=== PATIENT | male | born 1965 | race Caucasian/White ===

== ENCOUNTER 2021-07-20 21:13 | Emergency (ER) | payer MEDICARE, MEDICAID ==
[~2021-07-20] VITALS: Ht 173 cm; Wt 79.8 kg
[2021-07-20 21:13] VITALS: BP 154/98
[~2021-07-20 21:13] MED LIST: ALPR1TAB2 PO; ALPR1TAB7 PO; ALPR2TAB2 PO; AZIT-21 PO; CEFU500T5 PO; FLUT16SP22 NSEACH; GEMF600T88 PO; HYDR1TAB66 PO; LISI1TAB48 PO; NF-ESOM40C PO; OLAN10TA71 PO; OLAN20TA3 PO; OLAN20TA34 PO; OMEP20CA18 PO; PRED10TA PO; PRED50TA PO; REMERON PO; ROPI2TAB3 PO; ROPI2TAB6 PO; RT-ALBUINH IH; TIOT18CA2 IH; TRAZ150T60 PO; TRAZ150T72 PO
--- NOTE | 2021-07-20 21:27 | ED General ---
General Stated Complaint: LETHARGIC Source of Information: Patient Exam Limitations: No Limitations History of Present Illness Date Seen by Provider: Jul 20, 2021 Time Seen by Provider: 21:24 Initial Comments To ER by EMS with reports that he is lethargic for 2 days. He has had poor appetite has not been eating or drinking well. His only medical history is of paranoid schizophrenia Timing/Duration: 1-2 Days Severity: Moderate Associated Systoms: Denies Symptoms, Loss of Appetite, Malaise, Weakness Allergies and Home Medications Allergies Coded Allergies: divalproex sodium (Unverified Allergy, Unknown, 04/18/14) morphine (Unverified Allergy, Unknown, 04/18/14) quetiapine fumarate (Unverified Allergy, Unknown, 04/18/14) Patient Home Medication List Home Medication List Reviewed: Yes Albuterol Sulfate (Ventolin Hfa) 18 Gm Hfa.aer.ad, 2 PUFF IH Q4H PRN for SHORTNESS OF BREATH, (Reported) Entered as Reported by: MALINDA LIVINGSTON on 06/24/15857 Alprazolam (Alprazolam) 1 Mg Tablet, 1 MG PO BID, (Reported) Entered as Reported by: MALINDA LIVINGSTON on 06/24/15857 Fluticasone Propionate (Fluticasone Propionate) 16 Gm [place].susp, 2 SPRAYS NSEACH DAILY, (Reported) Entered as Reported by: MALINDA LIVINGSTON on 06/24/15857 Gemfibrozil (Gemfibrozil) 600 Mg Tablet, 600 MG PO BID, (Reported) Entered as Reported by: MALINDA LIVINGSTON on 06/24/15857 Lisinopril/Hydrochlorothiazide (Lisinopril-Hctz 20-25 mg Tab) 1 Each Tablet, 1 TAB PO HS, (Reported) Entered as Reported by: MALINDA LIVINGSTON on 06/24/15857 Olanzapine (Olanzapine) 10 Mg Tablet, 10 MG PO HS, (Reported) Entered as Reported by: MALINDA LIVINGSTON on 06/24/15857 Olanzapine (Olanzapine) 20 Mg Tablet, 20 MG PO HS, (Reported) Entered as Reported by: MALINDA LIVINGSTON on 06/24/15857 Omeprazole (Omeprazole) 20 Mg Capsule.dr, 20 MG PO HS, (Reported) Entered as Reported by: MALINDA LIVINGSTON on 06/24/15857 Ropinirole HCl (Ropinirole HCl) 2 Mg Tablet, 2 MG PO HS, (Reported) Entered as Reported by: MALINDA LIVINGSTON on 06/24/15857 Tiotropium [place] (Spiriva) 1 Inh Aerp, 1 CAP IH HS, (Reported) Entered as Reported by: MALINDA LIVINGSTON on 06/24/15857 Trazodone HCl (Oleptro ER) 150 Mg Tab.er.24h, 150 MG PO HS, (Reported) Entered as Reported by: MALINDA LIVINGSTON on 06/24/15857 Review of Systems Review of Systems Constitutional: see HPI; No chills, No fever; malaise, weakness EENTM: see HPI Respiratory: no symptoms reported; No cough, No dyspnea on exertion, No short of breath Cardiovascular: no symptoms reported Genitourinary: no symptoms reported Musculoskeletal: no symptoms reported Skin: no symptoms reported Psychiatric/Neurological: No Symptoms Reported Hematologic/Lymphatic: No Symptoms Reported Immunological/Allergic: no symptoms reported Past Inbwhqd-Cvwmuj-Ertbek Hx Immunizations Up To Date Tetanus Booster (TDap): Unknown PED Vaccines UTD: No Seasonal Allergies Seasonal Allergies: Yes Past Medical History Abdominal, Appendectomy Asthma, COPD, Emphysema Hypertension Reproductive Disorders: No Sexually Transmitted Disease: No HIV/AIDS: No Kidney Stones Fractures PTSD, Bipolar, Schizophrenia Family Medical History Alcoholism 19 FATHER 19 MOTHER Arthritis 19 FATHER Cataracts 19 FATHER Neoplasm 19 FATHER No Family History of: AIDS Abdominal aortic aneurysm [place]'s disease Alzheimer's disease Aphasia Asthma Cancer of mouth Cardiovascular disease Colon cancer Completed stroke Congenital disease Congenital heart disease Coronary thrombosis Cystic fibrosis Deafness or hearing loss Dementia Diabetes mellitus Drug abuse Dysphasia Fibrocystic disease of breast Gastroenteritis Glaucoma Headache disorder Hypercholesterolemia Hypertension Infertility Kidney disease Myocardial infarction Not obtainable due to adoption Osteoporosis Parkinson's disease Prostate cancer Psychosocial problem Respiratory disorder Seizure disorder Severe allergy Thyroid disease Tuberculosis Visual disorder Physical Exam Vital Signs Vital Signs - First Documented 07/20/21 21:13 Temp 36.8 Pulse 70 Resp 20 B/P (MAP) 154/98 (116) Pulse Ox 98 O2 Delivery Room Air Capillary Refill : Height, Weight, BMI Height: 5'7.00" Weight: 207lbs. 0.0oz. 93.787744cu; 32.42 BMI Method:Stated General Appearance: No Apparent Distress, WD/WN Eyes: Bilateral Eye Normal Inspection, Bilateral Eye PERRL, Bilateral Eye EOMI HEENT: PERRL/EOMI, TMs Normal, Other (Dry mucous membranes) Neck: Full Range of Motion, Normal Inspection Respiratory: No Accessory Muscle Use, No Respiratory Distress Cardiovascular: Regular Rate, Rhythm, Normal Peripheral Pulses Gastrointestinal: Non Tender, Soft Extremity: Normal Capillary Refill, Normal Inspection Neurologic/Psychiatric: Alert, Oriented x3 Progress/Results/Core Measures Suspected Sepsis SIRS Temperature: Pulse: Respiratory Rate: Laboratory Tests 07/20/21 21:21: White Blood Count 7.8 Blood Pressure / Mean: Laboratory Tests 07/20/21 21:21: Creatinine 1.07, Platelet Count 175, Total Bilirubin 0.7 Results/Orders Lab Results Laboratory Tests Test 07/20/21 21:21 07/20/21 21:50 07/20/21 22:10 Range/Units White Blood Count 7.8 4.3-11.0 10^3/uL Red Blood Count 5.56 H 4.30-5.52 10^6/uL Hemoglobin 17.0 13.3-17.7 g/dL Hematocrit 49 40-54 % Mean Corpuscular Volume 89 80-99 fL Mean Corpuscular Hemoglobin 31 25-34 pg Mean Corpuscular Hemoglobin Concent 35 32-36 g/dL Red Cell Distribution Width 12.8 10.0-14.5 % Platelet Count 175 130-400 10^3/uL Mean Platelet Volume 9.5 9.0-12.2 fL Immature Granulocyte % (Auto) 0 % Neutrophils (%) (Auto) 63 42-75 % Lymphocytes (%) (Auto) 28 12-44 % Monocytes (%) (Auto) 5 0-12 % Eosinophils (%) (Auto) 3 0-10 % Basophils (%) (Auto) 1 0-10 % Neutrophils # (Auto) 5.0 1.8-7.8 10^3/uL Lymphocytes # (Auto) 2.2 1.0-4.0 10^3/uL Monocytes # (Auto) 0.4 0.0-1.0 10^3/uL Eosinophils # (Auto) 0.3 0.0-0.3 10^3/uL Basophils # (Auto) 0.0 0.0-0.1 10^3/uL Immature Granulocyte # (Auto) 0.0 0.0-0.1 10^3/uL Sodium Level 140 135-145 MMOL/L Potassium Level 3.9 3.6-5.0 MMOL/L Chloride Level 103 98-107 MMOL/L Carbon Dioxide Level 23 21-32 MMOL/L Anion Gap 14 5-14 MMOL/L Blood Urea Nitrogen 14 7-18 MG/DL Creatinine 1.07 0.60-1.30 MG/DL Estimat Glomerular Filtration Rate 83 BUN/Creatinine Ratio 13 Glucose Level 144 H 70-105 MG/DL Calcium Level 9.4 8.5-10.1 MG/DL Corrected Calcium 9.2 8.5-10.1 MG/DL Total Bilirubin 0.7 0.1-1.0 MG/DL Aspartate Amino Transf (AST/SGOT) 14 5-34 U/L Alanine Aminotransferase (ALT/SGPT) 15 0-55 U/L Alkaline Phosphatase 79 40-136 U/L Total Protein 6.6 6.4-8.2 GM/DL Albumin 4.3 3.2-4.5 GM/DL Urine Color YELLOW Urine Clarity CLEAR Urine pH 7.0 5-9 Urine Specific [place] 1.015 L 1.016-1.022 Urine Protein NEGATIVE NEGATIVE Urine Glucose (UA) NEGATIVE NEGATIVE Urine Ketones NEGATIVE NEGATIVE Urine Nitrite NEGATIVE NEGATIVE Urine Bilirubin NEGATIVE NEGATIVE Urine Urobilinogen 0.2 < = 1.0 MG/DL Urine Leukocyte Esterase NEGATIVE NEGATIVE Urine RBC (Auto) NEGATIVE NEGATIVE Urine RBC RARE /HPF Urine WBC RARE /HPF Urine Squamous Epithelial Cells NONE /HPF Urine Crystals NONE /LPF Urine Bacteria TRACE /HPF Urine Casts NONE /LPF Urine Mucus SMALL H /LPF Urine Culture Indicated NO My Orders Orders - RUPAL CRANE APRN Covid 19 Inhouse Test (07/20/21 21:20) Cbc With Automated Diff (07/20/21 21:20) Comprehensive Metabolic Panel (07/20/21 21:20) Ed Iv/Invasive Line Start (07/20/21 21:20) Lactated Ringers (Lr 1000 Ml Iv Solution (07/20/21 21:30) Ua Culture If Indicated (07/20/21 21:20) Influenza A And B By Pcr (07/20/21 21:20) Vital Signs/I&O 07/20/21 21:13 Temp 36.8 Pulse 70 Resp 20 B/P (MAP) 154/98 (116) Pulse Ox 98 O2 Delivery Room Air Capillary Refill : Departure Impression Primary Impression: Fatigue Disposition: 01 HOME, SELF-CARE Condition: Stable Departure-Patient Inst. Decision time for Depature: 22:17 Referrals: TATA CHRISTINE MD (PCP/Family) Primary Care Physician Patient Instructions: Fatigue ED Add. Discharge Instructions: Return to ER for any concerns 2. Follow up with your doctor next week RUPAL CRANE APRN Jul 20, 2021 21:27
[2021-07-20 21:29] LABS: BASOPHILS % (AUTO) 1 % (0-10); EOSINOPHILS # (AUTO) 0.3 10^3/uL (0.0-0.3); EOSINOPHILS % (AUTO) 3 % (0-10); HEMATOCRIT 49 % (40-54); LYMPHOCYTES # (AUTO) 2.2 10^3/uL (1.0-4.0); LYMPHOCYTES % (AUTO) 28 % (12-44); MEAN CORPUSCULAR HEMOGLOBIN 31 pg (25-34); MEAN CORPUSCULAR HGB CONC 35 g/dL (32-36); MEAN CORPUSCULAR VOLUME 89 fL (80-99); MEAN PLATELET VOLUME 9.5 fL (9.0-12.2); MONOCYTES # (AUTO) 0.4 10^3/uL (0.0-1.0); MONOCYTES % (AUTO) 5 % (0-12); NEUTROPHILS % (AUTO) 63 % (42-75); PLATELET COUNT 175 10^3/uL (130-400); WHITE BLOOD COUNT 7.8 10^3/uL (4.3-11.0)
[2021-07-20] MEDS ORDERED: LACTATED RINGERS 1,000 ML IV SCH (21:30)
[2021-07-20 21:39] LABS: ALBUMIN 4.3 GM/DL (3.2-4.5)
[2021-07-20 21:40] LABS: POTASSIUM 3.9 MMOL/L (3.6-5.0)
[2021-07-20 21:41] LABS: CALCIUM 9.4 MG/DL (8.5-10.1)
[2021-07-20 21:42] LABS: TOTAL PROTEIN 6.6 GM/DL (6.4-8.2)
[2021-07-20 21:44] LABS: BILIRUBIN,TOTAL 0.7 MG/DL (0.1-1.0)
[2021-07-20 21:46] LABS: CREATININE SERUM 1.07 MG/DL (0.60-1.30)
[2021-07-20 21:57] LABS: BILIRUBIN,URINE NEGATIVE (NEGATIVE); CLARITY,URINE CLEAR; COLOR,URINE YELLOW; GLUCOSE, URINE (UA) NEGATIVE (NEGATIVE); KETONES,URINE NEGATIVE (NEGATIVE); LEUKOCYTE ESTERASE ,URINE NEGATIVE (NEGATIVE); NITRITE,URINE NEGATIVE (NEGATIVE); PROTEIN,URINE NEGATIVE (NEGATIVE)
[2021-07-20 22:14] LABS: BACTERIA,URINE TRACE /HPF; RBC,URINE RARE /HPF; WBC,URINE RARE /HPF
== END 2021-07-20 22:43 | disposition home or self-care (01) ==
LOC: EDUNIT# 21:13 → ER 21:17
DX: R53.83 Other fatigue (principal); Z20.822 Contact with and (suspected) exposure to COVID-19
CPT/HCPCS: 36415; 80053; 81000; 85025; 87636

== ENCOUNTER 2021-11-16 16:30 | Emergency (ER) | payer MEDICARE, MEDICAID ==
[~2021-11-16] VITALS: Ht 172.8 cm; Wt 78.0 kg
--- NOTE | 2021-11-16 16:58 | ED Respiratory ---
General Chief Complaint: COVID19 Suspect/Confirmed Stated Complaint: CHEST PAIN, ARM PAIN Nursing Triage Note: Pt presents w/ anxiety, chest pressure, hyperventilation, and recent exposure to Covid. He has been unable to take his meds the last few days and is also concerned that he may have been given meth a few days ago. Source: patient Exam Limitations: no limitations History of Present Illness Date Seen by Provider: Nov 16, 2021 Time Seen by Provider: 16:35 Initial Comments Patient is a 55-year-old male who presents to the emergency department today with a chief complaint of shortness of breath chest discomfort, exposure to COVID a couple of days ago. He states he just found out about the exposure today. He has been having body aches for a couple of days and not feeling well, not able to take his daily prescribed medications for mental health as well as diabetes. He states that 2 days ago he smoked some THC wax and he is concerned that there might have been methamphetamine in it. He has not taken methamphetamine in "years" and is very concerned that he might have inadvertently had some. He reports subjective fever and chills. No earache or sore throat but he has a runny nose. No swelling in his legs but he does have body aches. No problems with bowel or bladder. He is very anxious on arrival and hyperventilating. He was given Tylenol by EMS. He took ibuprofen last night. All other review of systems reviewed and negative except as stated. Timing/Duration: yesterday Severity: moderate Prior Episodes/Possible Cause: illness exposure Associated Symptoms: chest pain/soreness, fever/chills, nasal drainage, shortness of breath Allergies and Home Medications Allergies Coded Allergies: divalproex sodium (Unverified Allergy, Unknown, 04/18/14) morphine (Unverified Allergy, Unknown, 04/18/14) quetiapine fumarate (Unverified Allergy, Unknown, 04/18/14) Patient Home Medication List Home Medication List Reviewed: Yes Albuterol Sulfate (Ventolin Hfa) 18 Gm Hfa.aer.ad, 2 PUFF IH Q4H PRN for S HORTNESS OF BREATH, (Reported) Entered as Reported by: MALINDA LIVINGSTON on 06/24/15 0858 Alprazolam (Alprazolam) 1 Mg Tablet, 1 MG PO BID, (Reported) Entered as Reported by: MALINDA LIVINGSTON on 06/24/15857 Fluticasone Propionate (Fluticasone Propionate) 16 Gm [place].susp, 2 SPRAYS NSEACH DAILY, (Reported) Entered as Reported by: MALINDA LIVINGSTON on 06/24/15857 Gemfibrozil (Gemfibrozil) 600 Mg Tablet, 600 MG PO BID, (Reported) Entered as Reported by: MALINDA LIVINGSTON on 06/24/15857 Lisinopril/Hydrochlorothiazide (Lisinopril-Hctz 20-25 mg Tab) 1 Each Tablet, 1 TAB PO HS, (Reported) Entered as Reported by: MALINDA LIVINGSTON on 06/24/15857 Olanzapine (Olanzapine) 10 Mg Tablet, 10 MG PO HS, (Reported) Entered as Reported by: MALINDA LIVINGSTON on 06/24/15857 Olanzapine (Olanzapine) 20 Mg Tablet, 20 MG PO HS, (Reported) Entered as Reported by: MALINDA LIVINGSTON on 06/24/15857 Omeprazole (Omeprazole) 20 Mg Capsule.dr, 20 MG PO HS, (Reported) Entered as Reported by: MALINDA LIVINGSTON on 06/24/15857 Ropinirole HCl (Ropinirole HCl) 2 Mg Tablet, 2 MG PO HS, (Reported) Entered as Reported by: MALINDA LIVINGSTON on 06/24/15857 Tiotropium [place] (Spiriva) 1 Inh Aerp, 1 CAP IH HS, (Reported) Entered as Reported by: MALINDA LIVINGSTON on 06/24/15857 Trazodone HCl (Oleptro ER) 150 Mg Tab.er.24h, 150 MG PO HS, (Reported) Entered as Reported by: MALINDA LIVINGSTON on 06/24/15857 Review of Systems Review of Systems Constitutional: see HPI, fever, malaise, weakness EENTM: nose congestion Respiratory: short of breath Cardiovascular: chest pain (discomfort) Gastrointestinal: loss of appetite Genitourinary: no symptoms reported Musculoskeletal: muscle cramps Skin: no symptoms reported Psychiatric/Neurological: Anxiety All Other Systems Reviewed Negative Unless Noted: Yes Past Etancmn-Vpspmr-Jevvic Hx Patient Social History Tobacco Use?: Yes Tobacco type used: Cigarettes Smoking Status: Current Everyday Smoker Use of E-Cig and/or Vaping dev: No Substance use?: Yes Substance type: Marijuana Alcohol Use?: No Pt feels they are or have been: No Immunizations Up To Date Tetanus Booster (TDap): Unknown PED Vaccines UTD: No First/Initial COVID19 Vaccinat: 2020 Second COVID19 Vaccination Rick: Seasonal Allergies Seasonal Allergies: Yes Past Medical History Abdominal, Appendectomy Asthma, COPD, Emphysema Hypertension Reproductive Disorders: No Sexually Transmitted Disease: No HIV/AIDS: No Kidney Stones Fractures PTSD, Bipolar, Schizophrenia Family Medical History Alcoholism 19 FATHER 19 MOTHER Arthritis 19 FATHER Cataracts 19 FATHER Neoplasm 19 FATHER No Family History of: AIDS Abdominal aortic aneurysm [place] disease Alzheimer's disease Aphasia Asthma Cancer of mouth Cardiovascular disease Colon cancer Completed stroke Congenital disease Congenital heart disease Coronary thrombosis Cystic fibrosis Deafness or hearing loss Dementia Diabetes mellitus Drug abuse Dysphasia Fibrocystic disease of breast Gastroenteritis Glaucoma Headache disorder Hypercholesterolemia Hypertension Infertility Kidney disease Myocardial infarction Not obtainable due to adoption Osteoporosis Parkinson's disease Prostate cancer Psychosocial problem Respiratory disorder Seizure disorder Severe allergy Thyroid disease Tuberculosis Visual disorder Physical Exam Vital Signs - First Documented 11/16/21 16:30 Temp 36.4 Pulse 56 Resp 16 B/P (MAP) 130/97 (108) Pulse Ox 100 O2 Delivery Room Air Capillary Refill : Less Than 3 Seconds Height: 5'7.00" Weight: 207lbs. 0.0oz. 93.424721gt; 26.00 BMI Method:Stated General Appearance: WD/WN, moderate distress (anxious) Eyes: Bilateral Eye Normal Inspection, Bilateral Eye PERRL, Bilateral Eye EOMI HEENT: pharynx normal Neck: supple, normal inspection Respiratory: no respiratory distress, no accessory muscle use, wheezing (Scattered expiratory wheezes throughout bilateral posterior lung maier no res piratory distress) Cardiovascular: regular rate, rhythm Gastrointestinal: normal bowel sounds, non tender, soft Extremities: normal range of motion, normal inspection, no pedal edema Neurologic/Psychiatric: alert, oriented x 3, other (Anxious) Skin: normal color, warm/dry Progress/Results/Core Measures Suspected Sepsis SIRS Temperature: Pulse: 56 Respiratory Rate: 16 Laboratory Tests 11/16/21 16:36: White Blood Count 7.6 Blood Pressure 130 /97 Mean: 108 Laboratory Tests 11/16/21 16:36: Creatinine 1.01, Platelet Count 188 Results/Orders Lab Results Laboratory Tests Test 11/16/21 16:36 11/16/21 16:50 Range/Units White Blood Count 7.6 4.3-11.0 10^3/uL Red Blood Count 4.97 4.30-5.52 10^6/uL Hemoglobin 15.6 13.3-17.7 g/dL Hematocrit 44 40-54 % Mean Corpuscular Volume 88 80-99 fL Mean Corpuscular Hemoglobin 31 25-34 pg Mean Corpuscular Hemoglobin Concent 36 32-36 g/dL Red Cell Distribution Width 12.6 10.0-14.5 % Platelet Count 188 130-400 10^3/uL Mean Platelet Volume 10.1 9.0-12.2 fL Immature Granulocyte % (Auto) 0 % Neutrophils (%) (Auto) 63 42-75 % Lymphocytes (%) (Auto) 28 12-44 % Monocytes (%) (Auto) 6 0-12 % Eosinophils (%) (Auto) 3 0-10 % Basophils (%) (Auto) 0 0-10 % Neutrophils # (Auto) 4.8 1.8-7.8 10^3/uL Lymphocytes # (Auto) 2.1 1.0-4.0 10^3/uL Monocytes # (Auto) 0.5 0.0-1.0 10^3/uL Eosinophils # (Auto) 0.2 0.0-0.3 10^3/uL Basophils # (Auto) 0.0 0.0-0.1 10^3/uL Immature Granulocyte # (Auto) 0.0 0.0-0.1 10^3/uL Sodium Level 140 135-145 MMOL/L Potassium Level 3.9 3.6-5.0 MMOL/L Chloride Level 107 98-107 MMOL/L Carbon Dioxide Level 24 21-32 MMOL/L Anion Gap 9 5-14 MMOL/L Blood Urea Nitrogen 13 7-18 MG/DL Creatinine 1.01 0.60-1.30 MG/DL Estimat Glomerular Filtration Rate 89 BUN/Creatinine Ratio 13 Glucose Level 112 H 70-105 MG/DL Calcium Level 8.7 8.5-10.1 MG/DL SARS-CoV-2 RNA (RT-PCR) Not Detected Not Detecte My Orders Orders - BETH CHRISTIE MD Ed Iv/Invasive Line Start (11/16/21 16:53) Cbc With Automated Diff (11/16/21 16:53) Basic Metabolic Panel (11/16/21 16:53) Chest 1 View, Ap/Pa Only (11/16/21 16:53) Covid 19 Inhouse Test (11/16/21 16:53) Isolation Central Supply Req (11/16/21 16:53) Lorazepam Tablet (Ativan Tablet) (11/16/21 17:00) Medications Given in ED Current Medications Medications Dose Ordered Sig/[place] Route Start Time Stop Time Status Last Admin Dose Admin Lorazepam 1 mg ONCE ONCE PO 11/16/21 17:00 11/16/21 17:01 DC 11/16/21 17:09 1 MG Vital Signs/I&O 11/16/21 16:30 Temp 36.4 Pulse 56 Resp 16 B/P (MAP) 130/97 (108) Pulse Ox 100 O2 Delivery Room Air Capillary Refill : Less Than 3 Seconds Blood Pressure Mean: 108 Progress Note : Time: 17:51 Progress Note Labs reviewed, within normal limits, COVID-negative. Chest x-ray is clear. His vital signs are stable. He feels much better after p.o. Ativan. I have encouraged him to retest for COVID in a day or 2. Return precautions provided. He verbalized understanding, stable for discharge. Diagnostic Imaging Diagonstic Imaging: Xray Plain Films/CT/US/NM/MRI: chest Comments [facility], [place] NAME: TAYL[facility] REC#: [id number] PT STATUS: REG ER : 1965 PHYSICIAN: BETH CHRISTIE MD ADMIT DATE: 11/16/21/ER Draft Date of Exam:11/16/21 CHEST 1 VIEW, AP/PA ONLY INDICATION: Shortness of breath and bodyaches. COMPARISON: Comparison is made with prior chest from 06/23/2015. FINDINGS: The heart size is normal. The pulmonary vascularity is unremarkable. The lungs are clear. No infiltrate, effusion or pneumothorax is detected. IMPRESSION: No acute cardiopulmonary process is detected. Dictated on workstation # [id number] Dict: 11/16/21 1707 Trans: 11/16/21 1712 AS6 [id number] Interpreted by: UMBERTO RAYGOZA MD Electronically signed by: Departure Impression Primary Impression: Viral syndrome Additional Impression: Anxiety Disposition: 01 HOME, SELF-CARE Condition: Stable Departure-Patient Inst. Decision time for Depature: 17:51 Referrals: TATA CHRISTINE MD (PCP/Family) Primary Care Physician Patient Instructions: Viral Syndrome (DC) Add. Discharge Instructions: Drink plenty of fluids to stay well-hydrated. Please try and restart taking your meds today. You will need to retest for COVID in a day or 2. If you have any worsening symptoms of shortness of breath, high fever, rash, pain or vomiting please come back to the emergency department for reevaluation. Please follow-up with community health as scheduled. Copy Copies To 1: MALORIE BROWN KATHRYN M MD Nov 16, 2021 16:57
[2021-11-16 17:00] LABS: BASOPHILS % (AUTO) 0 % (0-10); EOSINOPHILS # (AUTO) 0.2 10^3/uL (0.0-0.3); EOSINOPHILS % (AUTO) 3 % (0-10); HEMATOCRIT 44 % (40-54); HEMOGLOBIN 15.6 g/dL (13.3-17.7); LYMPHOCYTES # (AUTO) 2.1 10^3/uL (1.0-4.0); LYMPHOCYTES % (AUTO) 28 % (12-44); MEAN CORPUSCULAR HEMOGLOBIN 31 pg (25-34); MEAN CORPUSCULAR HGB CONC 36 g/dL (32-36); MEAN CORPUSCULAR VOLUME 88 fL (80-99); MEAN PLATELET VOLUME 10.1 fL (9.0-12.2); MONOCYTES # (AUTO) 0.5 10^3/uL (0.0-1.0); MONOCYTES % (AUTO) 6 % (0-12); NEUTROPHILS # (AUTO) 4.8 10^3/uL (1.8-7.8); NEUTROPHILS % (AUTO) 63 % (42-75); PLATELET COUNT 188 10^3/uL (130-400); WHITE BLOOD COUNT 7.6 10^3/uL (4.3-11.0)
[2021-11-16] MEDS ORDERED: LORazepam 1 MG (ATIVAN) TAB PO ONE (17:00)
[2021-11-16 17:02] LABS: POTASSIUM 3.9 MMOL/L (3.6-5.0)
[2021-11-16 17:04] LABS: CALCIUM 8.7 MG/DL (8.5-10.1)
[2021-11-16 17:08] LABS: CREATININE SERUM 1.01 MG/DL (0.60-1.30)
--- NOTE | 2021-11-16 17:12 | Diagnostic Imaging Report ---
INDICATION: Shortness of breath and bodyaches. COMPARISON: Comparison is made with prior chest from 06/23/2015. FINDINGS: The heart size is normal. The pulmonary vascularity is unremarkable. The lungs are clear. No infiltrate, effusion or pneumothorax is detected. IMPRESSION: No acute cardiopulmonary process is detected. Dictated by: Dictated on workstation # [id number]
[2021-11-16 19:07] VITALS: BP 125/69
== END 2021-11-16 19:07 | disposition home or self-care (01) ==
LOC: EDUNIT# 16:30 → ER 16:31
DX: B34.9 Viral infection, unspecified (principal); F41.9 Anxiety disorder, unspecified; F17.210 Nicotine dependence, cigarettes, uncomplicated; Z20.822 Contact with and (suspected) exposure to COVID-19
CPT/HCPCS: 36415; 71045; 80048; 85025; 87636